=== PATIENT | male | born 1970 | race Two or more races ===

== ENCOUNTER 2022-02-13 01:06 | Emergency (ER) | payer OTHER ==
[~2022-02-13] VITALS: Ht 167.6 cm; Wt 52.2 kg
[2022-02-13 01:40] VITALS: BP 156/78
[2022-02-13] MEDS ORDERED: ALBUTEROL FS 2.5 MG/0.5 ML VIAL.NEB ONE (02:42)
[2022-02-13] MEDS ORDERED: IBUPROFEN 600 MG TABLET ONE (02:49)
[2022-02-13] MEDS ORDERED: IBUPROFEN 600 MG TABLET PO ONE (03:00)
[2022-02-13] MEDS ORDERED: ALBUTEROL FS 2.5 MG/0.5 ML VIAL.NEB NEB ONE (03:00)
--- NOTE | 2022-02-13 04:21 | NUR ---
Patient discharged to home in stable condition. Written and verbal after care instructions given. Patient verbalizes understanding of instruction.
== END 2022-02-13 04:20 | disposition home or self-care (01) ==
LOC: ER 01:07 → EDBD 01:07 → ER 04:20
DX: J18.9 Pneumonia, unspecified organism (principal); E11.22 Type 2 diabetes mellitus with diabetic chronic kidney disease; I12.0 Hypertensive chronic kidney disease with stage 5 chronic kidney disease or end stage renal disease; N18.6 End stage renal disease; Z99.2 Dependence on renal dialysis
CPT/HCPCS: 71045-TC

== ENCOUNTER 2022-07-08 14:21 | Inpatient (IN) | payer OTHER ==
[~2022-07-08] VITALS: Ht 162.6 cm; Wt 54.4 kg
--- NOTE | 2022-07-08 14:45 | NUR ---
Patient AOx4 able to express his concerns. Patient states he was feeling anxious earlier and that is the reason why he is here. Discussed plan of care, patient vrbalized agreement. All safety precautions taken.
--- NOTE | 2022-07-08 14:52 | NUR ---
Phelbotomist collecting blood sample.
--- NOTE | 2022-07-08 14:54 | NUR ---
RT at bedside collecting blood sample
[2022-07-08] MEDS ORDERED: ASCO-352 PO (15:29)
[2022-07-08] MEDS ORDERED: LISI10TA29 PO (15:29)
[2022-07-08] MEDS ORDERED: ACET-2605 PO ×2 (15:29)
[2022-07-08] MEDS ORDERED: NUT.237L67 PO (15:29)
[2022-07-08] MEDS ORDERED: PARO-64 PO (15:29)
[2022-07-08] MEDS ORDERED: CRAN425C6 PO (15:29)
[2022-07-08] MEDS ORDERED: CARV6.252 PO (15:29)
[2022-07-08] MEDS ORDERED: ACET-868 PO (15:29)
[2022-07-08] MEDS ORDERED: MAGN400O6 PO (15:29)
[2022-07-08] MEDS ORDERED: DONE5TAB34 PO (15:29)
[2022-07-08] MEDS ORDERED: FERR325T23 PO (15:29)
[2022-07-08] MEDS ORDERED: ASPI-1169 PO (15:29)
[2022-07-08] MEDS ORDERED: GABA-532 PO (15:29)
[2022-07-08] MEDS ORDERED: ATOR10TA PO (15:29)
[2022-07-08] MEDS ORDERED: ONDA-97 PO (15:29)
[2022-07-08] MEDS ORDERED: DOCU-141 PO (15:29)
[2022-07-08] MEDS ORDERED: CARB15DR12 EACH EAR (15:29)
[2022-07-08] MEDS ORDERED: INSU100V7 SQ (15:29)
[2022-07-08] MEDS ORDERED: NITR0.4T48 SL (15:29)
[2022-07-08] MEDS ORDERED: INSU100V39 SQ (15:29)
[2022-07-08] MEDS ORDERED: FAMO20TA8 PO (15:29)
[2022-07-08] MEDS ORDERED: FOLI0.8T2 PO (15:29)
[2022-07-08] MEDS ORDERED: CALC667C6 PO (15:29)
[2022-07-08] MEDS ORDERED: NIFE-34 PO (15:29)
[2022-07-08 15:31] LABS: ABG BASE EXCESS 5.7 mmol/L; ABG PCO2 45.8 mmHg (35.0-45.0); ABG PH 7.443 (7.350-7.450); ABG PO2 61.6 mmHg (75.0-100.0); COHb 0.5 % (0.5-1.5); MetHb 0.3 % (0.0-1.5); O2Hb 90.8 % (94.0-97.0); SITE, ABG Right Brachial; VENT MODE, BG Simple Mask 8lL
[2022-07-08 15:32] LABS: BASOPHILS # (AUTO) 0.1 K/uL (0.0-0.2); BASOPHILS % (AUTO) 1.2 % (0.0-2.0); EOSINOPHILS % (AUTO) 2.1 % (0.0-6.0); HEMATOCRIT 37 % (39-51); HEMOGLOBIN 12.4 g/dL (13.5-17.5); LYMPHOCYTES # (AUTO) 1.2 K/uL (0.8-4.8); LYMPHOCYTES % (AUTO) 16.9 % (20.0-44.0); MEAN CORPUSCULAR HGB CONC 34 g/dl (31.0-36.0); MEAN CORPUSCULAR VOLUME 95 fL (80-96); MONOCYTES % (AUTO) 13.3 % (2.0-12.0); NEUTROPHILS # (AUTO) 4.8 K/uL (1.8-8.9); NEUTROPHILS % (AUTO) 66.5 % (43.0-81.0); PLATELET COUNT (AUTO) 485 K/uL (150-450); RED BLOOD CELL COUNT(AUTO) 3.88 MIL/uL (4.5-6.0); WHITE BLOOD COUNT (AUTO) 7.3 K/uL (4.3-11.0)
[2022-07-08] MEDS ORDERED: VANCOMYCIN 1 GM in IV D5W 250 ML IV ONE (16:00)
[2022-07-08] MEDS ORDERED: CEFEPIME 1 GM in IV D5W 50 ML IV ONE (16:00)
[2022-07-08] MEDS ORDERED: CEFEPIME 1 GM VIAL ONE (16:01)
--- NOTE | 2022-07-08 16:03 | NUR ---
Called pharmacy, ordered prescribed medications.
[2022-07-08 16:24] LABS: ALANINE AMINOTRANSFERASE 22 U/L (12-78); ALBUMIN 3.6 g/dL (3.4-5.0); ALKALINE PHOSPHATASE 99 U/L (46-116); ASPARTATE AMINOTRANSFERASE 24 U/L (15-37); BILIRUBIN,DIRECT 0.1 mg/dL (0.0-0.2); BILIRUBIN,TOTAL 0.5 mg/dL (0.2-1.0); CALCIUM, SERUM 9.6 mg/dL (8.5-10.1); CARBON DIOXIDE 27 mmol/L (21-32); CHLORIDE 89 mmol/L (98-107); CREATININE 4.7 mg/dL (0.6-1.3); GLUCOSE 78 mg/dL (74-106); POTASSIUM 4.4 mmol/L (3.5-5.1); SODIUM SERUM 129 mmol/L (136-145); TOTAL PROTEIN, SERUM 7.9 g/dL (6.4-8.2); UREA NITROGEN, BLOOD 29 mg/dL (7-18)
--- NOTE | 2022-07-08 18:40 | NUR ---
Patient in bed, states he has no concerns. Aware of plan to move up as an inpatient, verbalized agreement.
--- NOTE | 2022-07-08 18:56 | NUR ---
REPORT GIVEN TO KODAK NIETO
--- NOTE | 2022-07-08 19:09 | NUR ---
CALLED [facility] PAGED PICKING BELT OPERATOR MATT DIRECTOR MORTGAGE FOR ADMISSION
--- NOTE | 2022-07-08 19:58 | NUR ---
PT TRANSFERRED TO 308-1 VIA ACLS PROTOCOL. TIM NIETO AT [facility]
--- NOTE | 2022-07-08 20:08 | NUR ---
RN NOTE; RECEIVED PT FROM ER IN RM 308-1,WITH FROY,AWAKED AOX4 LAO SPEAKING, ABLE TO MAKE NEEDS KNOWN,ON 4L O2 VIA NC LILA WELL SATING 97.4%,NO SIGN SOB/DISTRESS NOTED,IV ACCESS ON R HAND 20G INTACT AND PATENT,PT WAS ORIENT THE RM IN VERBALLY RESPONSIVE,PT ON GOING DIALYSIS LILA WELL,SAFETY MEASURE IN PLACE,CALL LIGHT WITHIN REACH,WILL CONTINUE TO MONITOR.
[2022-07-08] MEDS ORDERED: MAGNESIUM HYDROXIDE 30 ML UDC PO PRN (22:30)
[2022-07-08] MEDS ORDERED: DEXTROSE 50%-WATER 50 ML DISP.SYRIN IV PRN (22:30)
[2022-07-08] MEDS: FERROUS SULFATE (325 MG) 325 MG/TAB TABLET PO SCH (22:50)
[2022-07-08] MEDS: DOCUSATE SODIUM 100 MG CAPSULE PO SCH (22:50)
[2022-07-08] MEDS: GABAPENTIN 100 MG CAPSULE PO SCH (22:51)
[2022-07-08] MEDS: CARVEDILOL 6.25 MG TABLET PO SCH (22:51)
[2022-07-08] MEDS: DONEPEZIL 5 MG TABLET PO SCH (22:52)
[2022-07-08] MEDS: ATORVASTATIN 10 MG TABLET PO SCH (22:52)
[2022-07-08] MEDS: NIFEDIPINE XL 60 MG TAB.ER.24 PO SCH (22:52)
[2022-07-08] MEDS: CALCIUM ACETATE 667 MG CAP/TAB PO SCH (22:52)
[2022-07-08] MEDS: BLOOD SUGAR DIAGNOSTIC 1 EACH STRIP IN SCH (22:59)
[2022-07-08 23:00] VITALS: BP 155/86
[2022-07-08] MEDS: INSULIN GLARGINE, 100 UNIT/ML CARTRIDGE SQ SCH (23:11)
[2022-07-09] MEDS ORDERED: CARBAMIDE PEROXIDE OTIC 15 ML BOTTLE ONE (00:33)
[2022-07-09] MEDS: CARBAMIDE PEROXIDE OTIC 15 ML BOTTLE EACH EAR SCH ×3 (00:47→18:13)
[2022-07-09 04:00] VITALS: BP 134/65
[2022-07-09] MEDS ORDERED: CEFEPIME 1 GM in IV D5W 50 ML IV ONE (04:00)
[2022-07-09] MEDS ORDERED: CEFEPIME 1 GM VIAL ONE (05:21)
[2022-07-09 05:44] LABS: BASOPHILS # (AUTO) 0.1 K/uL (0.0-0.2); BASOPHILS % (AUTO) 1.6 % (0.0-2.0); EOSINOPHILS % (AUTO) 4.3 % (0.0-6.0); HEMATOCRIT 33 % (39-51); HEMOGLOBIN 10.8 g/dL (13.5-17.5); LYMPHOCYTES # (AUTO) 1.5 K/uL (0.8-4.8); LYMPHOCYTES % (AUTO) 21.6 % (20.0-44.0); MEAN CORPUSCULAR HGB CONC 33 g/dl (31.0-36.0); MEAN CORPUSCULAR VOLUME 96 fL (80-96); MONOCYTES # (AUTO) 0.9 K/uL (0.1-1.30); MONOCYTES % (AUTO) 13.2 % (2.0-12.0); NEUTROPHILS % (AUTO) 59.3 % (43.0-81.0); PLATELET COUNT (AUTO) 421 K/uL (150-450); RED BLOOD CELL COUNT(AUTO) 3.39 MIL/uL (4.5-6.0); WHITE BLOOD COUNT (AUTO) 6.8 K/uL (4.3-11.0)
[2022-07-09 06:19] LABS: CALCIUM, SERUM 8.9 mg/dL (8.5-10.1); CREATININE 3.9 mg/dL (0.6-1.3); PHOSPHORUS 3.9 mg/dL (2.5-4.9); POTASSIUM 3.7 mmol/L (3.5-5.1)
[2022-07-09] MEDS: BLOOD SUGAR DIAGNOSTIC 1 EACH STRIP IN SCH ×4 (06:19→22:09)
--- NOTE | 2022-07-09 06:27 | NUR ---
RN CLOSING NOTE; PATIENT IN BED AWAKED AOX4 BHUTANESE SPEAKING WITH LITTLE TURKISH,ABLE TO MAKE NEEDS KNOWN,ON 4L O2 VIA NC LILA WELL SATING 98%,NO SIGN SOB/DISTRESS NOTED,NO COMPLAIN OF PAIN/DISCOMFORT DURING SHIFT,DUE MEDS GIVEN ORDER,ALL NEEDS ATTENDED,IV ACCESS ON R HAND 20G SL,HD CATH KINGS [MWF] INTACT AND PATENT,SAFETY MEASURE IN PLACE,CALL LIGHT WITHIN REACH,WILL ENDORSED TO NEXT SHIFT
[2022-07-09] MEDS ORDERED: VANCOMYCIN 500 MG in IV D5W 100 ML IV PRN (06:30)
[2022-07-09 07:00] VITALS: BP 132/70
[2022-07-09 07:35] LABS: MAGNESIUM 2.3 mg/dL (1.8-2.4)
--- NOTE | 2022-07-09 07:51 | NUR ---
CHIEF WRITER Open Notes Received patient in bed. A/O x4. Slovenian speaking. IV @ left hand intact, patent, no s/s of dislocation. On O2 4L. No SOB/distress/pain noted. Keep the bed in lowest position. Offered assistance. Keep patient dry, clean, comfortable. Continue to monitor patient
[2022-07-09] MEDS: LISINOPRIL (10MG) 10 MG TABLET PO SCH (08:53)
[2022-07-09] MEDS: DOCUSATE SODIUM 100 MG CAPSULE PO SCH ×2 (08:53→21:13)
[2022-07-09] MEDS: CALCIUM ACETATE 667 MG CAP/TAB PO SCH ×3 (08:54→17:42)
[2022-07-09] MEDS: HEPARIN SODIUM, PORCINE 5000 UNITS/1 ML VIAL SQ SCH ×2 (08:57→21:14)
[2022-07-09] MEDS: GABAPENTIN 100 MG CAPSULE PO SCH ×3 (08:57→17:41)
[2022-07-09] MEDS: FAMOTIDINE (20 MG) 20 MG TABLET PO SCH (08:58)
[2022-07-09] MEDS: ASPIRIN 81 MG TAB.CHEW PO SCH (08:58)
[2022-07-09] MEDS: VIT B CMPLX 3/FA/VIT C/BIOTIN 1 TAB TABLET PO SCH (08:58)
[2022-07-09] MEDS: PAROXETINE HCL 20 MG TABLET PO SCH (08:58)
[2022-07-09] MEDS: FERROUS SULFATE (325 MG) 325 MG/TAB TABLET PO SCH ×2 (08:59→17:42)
[2022-07-09] MEDS: ASCORBIC ACID 500 MG TABLET PO SCH (08:59)
[2022-07-09] MEDS: CARVEDILOL 6.25 MG TABLET PO SCH ×2 (09:00→17:42)
[2022-07-09] MEDS: NIFEDIPINE XL 60 MG TAB.ER.24 PO SCH ×2 (09:00→21:13)
[2022-07-09] MEDS: NEPRO VAN 237 ML CAN PO SCH ×2 (09:04→17:42)
[2022-07-09] MEDS: ACETAMINOPHEN 325 MG TABLET PO PRN (12:34)
[2022-07-09] MEDS: INSULIN REGULAR, HUMAN 100 UNIT/ML 3 ML VIAL SQ PRN ×2 (12:43→22:08)
[2022-07-09 16:00] VITALS: BP 135/76
--- NOTE | 2022-07-09 18:49 | NUR ---
MOLD FILLING OPERATOR Closing Note Patient dry, clean, comfortable in bed, A/O x4, speak [place] Citizen, able to make needs known, on 4L O2 via NC, sat 98%, no s/s of SOB/distress/pain/discomfort noted. Offered laundry assistant. IV access on R hand 20G, intact, patent. Safety measure in place, call light at reach. Next shift will continue to monitor patient.
--- NOTE | 2022-07-09 19:31 | NUR ---
RN OPENING NOTE; RECEIVED PATIENT IN BED AWAKED AOX4 SOUTH AFRICAN SPEAKING WITH LITTLE DIVEHI,ABLE TO MAKE NEEDS KNOWN,ON 4L O2 VIA NC LILA WELL SATING 96%,NO SIGN SOB/DISTRESS NOTED,NO COMPLAIN OF PAIN/DISCOMFORT AT THIS TIME,IV ACCESS ON R HAND 20G SL,HD CATH KINGS [MWF] INTACT AND PATENT,SAFETY MEASURE IN PLACE,CALL LIGHT WITHIN REACH,WILL CONTINUE TO MONITOR.
[2022-07-09 20:00] VITALS: BP 165/95
[2022-07-09] MEDS: DONEPEZIL 5 MG TABLET PO SCH (21:13)
[2022-07-09] MEDS: ATORVASTATIN 10 MG TABLET PO SCH (21:13)
[2022-07-09] MEDS: INSULIN GLARGINE, 100 UNIT/ML CARTRIDGE SQ SCH (22:09)
[2022-07-09] MEDS: ONDANSETRON HCL/PF 4 MG/2 ML VIAL IVP PRN (22:26)
[2022-07-09] MEDS ORDERED: CEFEPIME 1 GM in IV D5W 50 ML IV SCH (23:00)
[2022-07-10] VITALS: BP 147/76
[2022-07-10 04:58] VITALS: BP 134/77
--- NOTE | 2022-07-10 06:13 | NUR ---
RN CLOSING NOTE; PATIENT IN BED AWAKED AOX4 DOMINICAN SPEAKING WITH LITTLE DANISH,ABLE TO MAKE NEEDS KNOWN,ON 4L O2 VIA NC LILA WELL SATING 97%,NO SIGN SOB/DISTRESS NOTED,NO COMPLAIN OF PAIN/DISCOMFORT DURING SHIFT,DUE MEDS GIVEN ORDER,ALL NEEDS ATTENDED,IV ACCESS ON R HAND 20G SL,HD CATH KINGS [MWF] INTACT AND PATENT,SAFETY MEASURE IN PLACE,CALL LIGHT WITHIN REACH,WILL ENDORSED TO NEXT SHIFT
[2022-07-10] MEDS: BLOOD SUGAR DIAGNOSTIC 1 EACH STRIP IN SCH ×4 (06:46→22:12)
--- NOTE | 2022-07-10 07:49 | NUR ---
BOTTOM CEMENTER Open Note Received patient in bed asleep. A/O x4. Northern Irish speaking. IV @ left hand intact, patent, no s/s of dislocation. On O2 4L. No SOB/distress/pain noted. Keep the bed in lowest position. Offered assistance. Keep patient dry, clean, comfortable. Continue to monitor patient
[2022-07-10 08:00] VITALS: BP 139/75
[2022-07-10] MEDS: GABAPENTIN 100 MG CAPSULE PO SCH ×3 (08:40→17:34)
[2022-07-10] MEDS: ASCORBIC ACID 500 MG TABLET PO SCH (08:45)
[2022-07-10] MEDS: CARBAMIDE PEROXIDE OTIC 15 ML BOTTLE EACH EAR SCH ×2 (08:45→17:33)
[2022-07-10] MEDS: HEPARIN SODIUM, PORCINE 5000 UNITS/1 ML VIAL SQ SCH ×2 (08:45→21:10)
[2022-07-10] MEDS: VIT B CMPLX 3/FA/VIT C/BIOTIN 1 TAB TABLET PO SCH (08:45)
[2022-07-10] MEDS: LISINOPRIL (10MG) 10 MG TABLET PO SCH (08:46)
[2022-07-10 08:47] LABS: BASOPHILS # (AUTO) 0.1 K/uL (0.0-0.2); BASOPHILS % (AUTO) 1.1 % (0.0-2.0); EOSINOPHILS % (AUTO) 3.8 % (0.0-6.0); HEMATOCRIT 37 % (39-51); HEMOGLOBIN 11.8 g/dL (13.5-17.5); LYMPHOCYTES # (AUTO) 1.2 K/uL (0.8-4.8); LYMPHOCYTES % (AUTO) 17.6 % (20.0-44.0); MEAN CORPUSCULAR HGB CONC 32 g/dl (31.0-36.0); MEAN CORPUSCULAR VOLUME 97 fL (80-96); MONOCYTES # (AUTO) 0.9 K/uL (0.1-1.30); MONOCYTES % (AUTO) 12.7 % (2.0-12.0); NEUTROPHILS # (AUTO) 4.6 K/uL (1.8-8.9); NEUTROPHILS % (AUTO) 64.8 % (43.0-81.0); PLATELET COUNT (AUTO) 476 K/uL (150-450); RED BLOOD CELL COUNT(AUTO) 3.78 MIL/uL (4.5-6.0); WHITE BLOOD COUNT (AUTO) 7.1 K/uL (4.3-11.0)
[2022-07-10] MEDS: NIFEDIPINE XL 60 MG TAB.ER.24 PO SCH ×2 (08:47→21:09)
[2022-07-10] MEDS: PAROXETINE HCL 20 MG TABLET PO SCH (08:47)
[2022-07-10] MEDS: FERROUS SULFATE (325 MG) 325 MG/TAB TABLET PO SCH ×2 (08:48→17:35)
[2022-07-10] MEDS: ASPIRIN 81 MG TAB.CHEW PO SCH (08:48)
[2022-07-10] MEDS: FAMOTIDINE (20 MG) 20 MG TABLET PO SCH (08:48)
[2022-07-10] MEDS: DOCUSATE SODIUM 100 MG CAPSULE PO SCH ×2 (08:48→21:09)
[2022-07-10] MEDS: CALCIUM ACETATE 667 MG CAP/TAB PO SCH ×3 (08:48→17:35)
[2022-07-10] MEDS: NEPRO VAN 237 ML CAN PO SCH ×2 (08:50→17:36)
[2022-07-10] MEDS: CARVEDILOL 6.25 MG TABLET PO SCH ×2 (08:50→17:35)
[2022-07-10 09:09] LABS: CALCIUM, SERUM 9.3 mg/dL (8.5-10.1); CREATININE 3.8 mg/dL (0.6-1.3); MAGNESIUM 2.4 mg/dL (1.8-2.4); PHOSPHORUS 3.2 mg/dL (2.5-4.9); POTASSIUM 3.9 mmol/L (3.5-5.1)
[2022-07-10 12:00] VITALS: BP 133/76
[2022-07-10] MEDS: ACETAMINOPHEN 325 MG TABLET PO PRN (12:00)
--- NOTE | 2022-07-10 14:37 | NUR ---
[employer] SCOUT note Performing of Skip Item Ondansetron HCl/PF 4mg/2ml 2Ml Vial at [facility] wasn't recorded. Performed Return Ondansetron HCl/PF 4mg/2ml 2Ml Vial at [facility] with no vial.
[2022-07-10 16:00] VITALS: BP 143/79
--- NOTE | 2022-07-10 18:48 | NUR ---
DIRECTOR OF STUDENT SERVICES Closing Note Patient in bed, A/O x4, Albanian speaking, able to make needs known. On O2 4L via NC, no s/s of SOB/distress/pain/discomfort. IV access on R hand #20G, intact, patent, no s/s of infection/infiltration. Satety measure in place. Call light at reach. Will endorse to next shift to continue monitor patient.
--- NOTE | 2022-07-10 19:33 | NUR ---
RN OPENING NOTE; RECEIVED PATIENT IN BED AWAKED AOX4 MALAYSIAN SPEAKING WITH LITTLE INDONESIAN,ABLE TO MAKE NEEDS KNOWN,ON 4L O2 VIA NC LILA WELL SATING 96%,NO SIGN SOB/DISTRESS NOTED,NO COMPLAIN OF PAIN/DISCOMFORT AT THIS TIME,IV ACCESS ON R HAND 20G SL,HD CATH KINGS [MWF] INTACT AND PATENT,SAFETY MEASURE IN PLACE,CALL LIGHT WITHIN REACH,WILL CONTINUE TO MONITOR.
[2022-07-10] MEDS ORDERED: GENTAMICIN 100 MG in IV D5W 100 ML IV ONE (21:00)
[2022-07-10] MEDS: ATORVASTATIN 10 MG TABLET PO SCH (21:08)
[2022-07-10] MEDS: DONEPEZIL 5 MG TABLET PO SCH (21:09)
[2022-07-10 21:27] VITALS: BP 139/65
[2022-07-10] MEDS: INSULIN REGULAR, HUMAN 100 UNIT/ML 3 ML VIAL SQ PRN (22:10)
[2022-07-10] MEDS: INSULIN GLARGINE, 100 UNIT/ML CARTRIDGE SQ SCH (22:11)
[2022-07-10] MEDS ORDERED: CEFEPIME 2 GM in IV D5W 100 ML IV SCH (23:00)
[2022-07-11] VITALS (7 sets, daily range): BP systolic 113–153; BP diastolic 61–92
[2022-07-11] MEDS ORDERED: GENTAMICIN 80 MG in IV D5W 50 ML IV PRN (06:00)
[2022-07-11 06:22] LABS: CALCIUM, SERUM 9.2 mg/dL (8.5-10.1); CREATININE 3.4 mg/dL (0.6-1.3); MAGNESIUM 2.4 mg/dL (1.8-2.4); PHOSPHORUS 3.1 mg/dL (2.5-4.9); POTASSIUM 4.4 mmol/L (3.5-5.1)
--- NOTE | 2022-07-11 06:26 | NUR ---
RN CLOSING NOTE; PATIENT IN BED AWAKED AOX4 GAMBIAN SPEAKING WITH LITTLE DIVEHI,ABLE TO MAKE NEEDS KNOWN,ON 4L O2 VIA NC LILA WELL SATING 99%,NO SIGN SOB/DISTRESS NOTED,NO COMPLAIN OF PAIN/DISCOMFORT DURING SHIFT,DUE MEDS GIVEN ORDER,ALL NEEDS ATTENDED,IV ACCESS ON R HAND 20G SL,HD CATH KINGS [MWF] INTACT AND PATENT,SAFETY MEASURE IN PLACE,CALL LIGHT WITHIN REACH,WILL ENDORSED TO NEXT SHIFT
[2022-07-11] MEDS: BLOOD SUGAR DIAGNOSTIC 1 EACH STRIP IN SCH ×4 (06:39→22:02)
[2022-07-11 07:03] LABS: BASOPHILS # (AUTO) 0.1 K/uL (0.0-0.2); BASOPHILS % (AUTO) 1.2 % (0.0-2.0); HEMATOCRIT 33 % (39-51); HEMOGLOBIN 10.7 g/dL (13.5-17.5); LYMPHOCYTES # (AUTO) 1.3 K/uL (0.8-4.8); MEAN CORPUSCULAR HGB CONC 33 g/dl (31.0-36.0); MEAN CORPUSCULAR VOLUME 98 fL (80-96); MONOCYTES # (AUTO) 0.9 K/uL (0.1-1.30); NEUTROPHILS # (AUTO) 4.4 K/uL (1.8-8.9); NEUTROPHILS % (AUTO) 62.8 % (43.0-81.0); PLATELET COUNT (AUTO) 400 K/uL (150-450); RED BLOOD CELL COUNT(AUTO) 3.35 MIL/uL (4.5-6.0); WHITE BLOOD COUNT (AUTO) 7.1 K/uL (4.3-11.0)
--- NOTE | 2022-07-11 08:35 | NUR ---
DIRECTOR BIOMEDICAL ENGINEERING Opening Note Received patient in bed, awaked. A/O X4. Swedish speaking. Able to make needs known. On O2 4L via NC. O2 sat 99%. No s/s of SOB/distress/pain/discomfort noted. IV access #20G at Right hand inplace, no s/s of infiltration/infection. Safety precaution in place. Call light at reach. Will continue to monitor patient.
[2022-07-11] MEDS: CARBAMIDE PEROXIDE OTIC 15 ML BOTTLE EACH EAR SCH ×2 (09:05→17:59)
[2022-07-11] MEDS: CALCIUM ACETATE 667 MG CAP/TAB PO SCH ×3 (09:05→18:02)
[2022-07-11] MEDS: VIT B CMPLX 3/FA/VIT C/BIOTIN 1 TAB TABLET PO SCH (09:05)
[2022-07-11] MEDS: FERROUS SULFATE (325 MG) 325 MG/TAB TABLET PO SCH ×2 (09:06→17:59)
[2022-07-11] MEDS: GABAPENTIN 100 MG CAPSULE PO SCH ×3 (09:06→18:00)
[2022-07-11] MEDS: DOCUSATE SODIUM 100 MG CAPSULE PO SCH ×2 (09:06→21:29)
[2022-07-11] MEDS: ASCORBIC ACID 500 MG TABLET PO SCH (09:07)
[2022-07-11] MEDS: NIFEDIPINE XL 60 MG TAB.ER.24 PO SCH ×2 (09:07→21:29)
[2022-07-11] MEDS: LISINOPRIL (10MG) 10 MG TABLET PO SCH (09:09)
[2022-07-11] MEDS: HEPARIN SODIUM, PORCINE 5000 UNITS/1 ML VIAL SQ SCH ×2 (09:09→22:42)
[2022-07-11] MEDS: ASPIRIN 81 MG TAB.CHEW PO SCH (09:10)
[2022-07-11] MEDS: PAROXETINE HCL 20 MG TABLET PO SCH (09:10)
[2022-07-11] MEDS: CARVEDILOL 6.25 MG TABLET PO SCH ×2 (09:10→17:00)
[2022-07-11] MEDS: FAMOTIDINE (20 MG) 20 MG TABLET PO SCH (09:25)
[2022-07-11] MEDS: NEPRO VAN 237 ML CAN PO SCH ×2 (09:25→18:03)
[2022-07-11] MEDS: INSULIN REGULAR, HUMAN 100 UNIT/ML 3 ML VIAL SQ PRN ×3 (14:57→22:23)
--- NOTE | 2022-07-11 19:31 | NUR ---
SCIENCE TUTOR Closing Note Patient in bed, A/O x4, Hong Konger speaking, able to make needs known. On O2 4L via NC, no s/s of SOB/distress/pain/discomfort. IV access on R hand #20G, intact, patent, no s/s of infection/infiltration. Satety measure in place. Call light at reach. Will endorse to next shift to continue with the patient's care plan.
--- NOTE | 2022-07-11 19:40 | NUR ---
ACQUISITION SPECIALIST OPENING NOTES RECEIVED PATIENT IN BED SLEEPING. EASILY AWAKEN BY VERBAL STIMULI. CHINESE SPEAKING. ON 4L OXYGEN VIA NASAL CANNULA, BREATHING EVEN AND UNLABORED, NO SOB OR DISTRESS NOTED AT THIS TIME. IV ACCESS ON THE RIGHT HAND #20G, SALINE LOCK AND KINGS HD CATH. ON EXTERNAL TUMBLING AND ROLLING SUPERVISOR WITH CURRENT READING OF SB @58. SAFETY MEASURES IN PLACE WITH BED IN LOWEST LOCKED POSITION. BED ALARM ON. SIDE RAILS UP X 2. CALL LIGHT WITHIN EASY REACH. WILL CONTINUE WITH THE PLAN OF CARE.
--- NOTE | 2022-07-11 22:00 | NUR ---
RN NOTES BS LEVEL IS 130. NO COVERAGE PER SLIDING SCALE. WILL CONTINUE TO MONITOR THE PATIENT.
[2022-07-11] MEDS: ATORVASTATIN 10 MG TABLET PO SCH (22:01)
[2022-07-11] MEDS: DONEPEZIL 5 MG TABLET PO SCH (22:01)
[2022-07-11] MEDS: INSULIN GLARGINE, 100 UNIT/ML CARTRIDGE SQ SCH (22:09)
--- NOTE | 2022-07-12 00:30 | NUR ---
RN NOTES BS LEVEL OF THE PATIENT IS 56. PATIENT IS DIAPHORETIC. GAVE ORANGE JUICE TO THE PATIENT. PATIENT WENT BACK TO SLEEP. WILL CONTINUE TO MONITOR THE PATIENT. Addendum: 07/12/22 at 0111 by DOUG RIVER RN 46 IS THE BS LEVEL
[2022-07-12 03:52] VITALS: BP 143/83
--- NOTE | 2022-07-12 06:10 | NUR ---
RN NOTES BS LEVEL OF PATIENT IS 39 AND GAVE BOLUS OF D5W. WILL ASSESS THE PATIENT AFTER AN HOUR.
[2022-07-12] MEDS: BLOOD SUGAR DIAGNOSTIC 1 EACH STRIP IN SCH ×4 (06:16→21:39)
[2022-07-12 07:00] VITALS: BP 139/81
--- NOTE | 2022-07-12 07:20 | NUR ---
RN NOTES PATIENT BS LEVEL IS 122 AFTER BOLUS OF D5W. WILL CONTINUE TO MONITOR THE PATIENT AND WILL ENDORSE T THE NEXT SHIFT.
--- NOTE | 2022-07-12 07:31 | NUR ---
METAPHYSICIST CLOSING NOTES PATIENT IN BED SLEEPING. EASILY AWAKEN BY VERBAL STIMULI. MAORI SPEAKING. ON 4L OXYGEN VIA NASAL CANNULA, BREATHING EVEN AND UNLABORED, NO SOB OR DISTRESS NOTED AT THIS TIME. IV ACCESS ON THE RIGHT HAND #20G, SALINE LOCK AND KINGS HD CATH. ON EXTERNAL CARDIOVASCULAR SURGEON WITH CURRENT READING OF SB @50'S. SAFETY MEASURES MAINTAINED MEMA THROUGHOUT THE SHIFT. ALL NEEDS ATTENDED. WILL ENDORSE TO THE NEXT SHIFT.
--- NOTE | 2022-07-12 07:35 | NUR ---
CROP FARM WORKERS CLOSING NOTES: RECEIVED PATIENT IN BED SLEEPING, EASILY ROUSED, A/O X3, KINYARWANDA SPEAKING, ABLE TO MAKE NEEDS KNOWN WITH TRANSLATION. DENIES PAIN AT THIS TIME. PT ON 4L OXYGEN VIA NASAL CANNULA, NO S/S OF SOB NOTED. IV ACCESS ON THE RIGHT HAND #20G, SALINE LOCK, PATENT, INTACT, KINGS HD CATH, NOTED, CDI. PALEOLOGY PROFESSOR READ SB, HR=54. ALL SAFETY MEASURES IN PLACE, CALL LIGHT AND TABLE WITHIN EASY REACH, WILL CONT WITH PLAN OF CARE DURING SHIFT.
[2022-07-12] MEDS: ASPIRIN 81 MG TAB.CHEW PO SCH (08:30)
[2022-07-12] MEDS: VIT B CMPLX 3/FA/VIT C/BIOTIN 1 TAB TABLET PO SCH (08:31)
[2022-07-12] MEDS: CALCIUM ACETATE 667 MG CAP/TAB PO SCH ×3 (08:31→17:28)
[2022-07-12] MEDS: GABAPENTIN 100 MG CAPSULE PO SCH ×3 (08:31→16:15)
[2022-07-12] MEDS: DOCUSATE SODIUM 100 MG CAPSULE PO SCH ×2 (08:31→21:17)
[2022-07-12] MEDS: FAMOTIDINE (20 MG) 20 MG TABLET PO SCH (08:31)
[2022-07-12] MEDS: PAROXETINE HCL 20 MG TABLET PO SCH (08:32)
[2022-07-12] MEDS: FERROUS SULFATE (325 MG) 325 MG/TAB TABLET PO SCH ×2 (08:32→16:15)
[2022-07-12] MEDS: ASCORBIC ACID 500 MG TABLET PO SCH (08:32)
[2022-07-12] MEDS: HEPARIN SODIUM, PORCINE 5000 UNITS/1 ML VIAL SQ SCH ×2 (08:34→21:18)
[2022-07-12] MEDS: CARBAMIDE PEROXIDE OTIC 15 ML BOTTLE EACH EAR SCH ×3 (08:52→16:15)
[2022-07-12] MEDS: CARVEDILOL 6.25 MG TABLET PO SCH ×2 (08:52→16:15)
[2022-07-12] MEDS: NIFEDIPINE XL 60 MG TAB.ER.24 PO SCH ×2 (08:53→21:22)
--- NOTE | 2022-07-12 08:53 | NUR ---
RN NOTES: BP MED HELD AM BP MEDS FOR SCHEDULED HD 07/12, BP= 139/81, HR= 54
[2022-07-12] MEDS: NEPRO VAN 237 ML CAN PO SCH ×2 (08:56→17:39)
[2022-07-12] MEDS: LISINOPRIL (10MG) 10 MG TABLET PO SCH (08:57)
--- NOTE | 2022-07-12 10:30 | NUR ---
RN NOTES: PT MOVED TO ROOM 312-2
--- NOTE | 2022-07-12 11:00 | NUR ---
RN NOTES- MISSING MED EARDROP NOT GIVEN, MISSING FROM CASSETTE AND PT'S BEDSIDE, CALLED PHARMACY FOR REPLACEMENT.
[2022-07-12] MEDS: INSULIN REGULAR, HUMAN 100 UNIT/ML 3 ML VIAL SQ PRN ×2 (11:06→21:39)
[2022-07-12 12:12] LABS: BASOPHILS # (AUTO) 0.2 K/uL (0.0-0.2); BASOPHILS % (AUTO) 3.3 % (0.0-2.0); EOSINOPHILS % (AUTO) 4.9 % (0.0-6.0); HEMATOCRIT 33 % (39-51); HEMOGLOBIN 10.9 g/dL (13.5-17.5); LYMPHOCYTES # (AUTO) 1.4 K/uL (0.8-4.8); MEAN CORPUSCULAR HGB CONC 33 g/dl (31.0-36.0); MEAN CORPUSCULAR VOLUME 96 fL (80-96); MONOCYTES # (AUTO) 0.6 K/uL (0.1-1.30); MONOCYTES % (AUTO) 9.6 % (2.0-12.0); NEUTROPHILS # (AUTO) 3.5 K/uL (1.8-8.9); NEUTROPHILS % (AUTO) 59.2 % (43.0-81.0); PLATELET COUNT (AUTO) 372 K/uL (150-450); RED BLOOD CELL COUNT(AUTO) 3.43 MIL/uL (4.5-6.0); WHITE BLOOD COUNT (AUTO) 5.9 K/uL (4.3-11.0)
[2022-07-12 12:13] VITALS: BP 139/58
[2022-07-12 12:28] LABS: CALCIUM, SERUM 9.1 mg/dL (8.5-10.1); MAGNESIUM 2.3 mg/dL (1.8-2.4); PHOSPHORUS 2.6 mg/dL (2.5-4.9); POTASSIUM 4.5 mmol/L (3.5-5.1)
--- NOTE | 2022-07-12 12:47 | NUR ---
RN NOTES: 1300 MEDS HELD, PT IS CURRENTLY ON HD
[2022-07-12 16:00] VITALS: BP 139/58
--- NOTE | 2022-07-12 19:15 | NUR ---
RN opening notes Received Pt from morning nurse. Pt is laying in bed comfortably. Pt is alert and orientedX3. Pt speaks Swiss and able to make needs known. On 4 L NC. No SOB. No S/S of distress noted. IV site at R hand # 20 is clean, intact and flushes well. KINGS HD cath is clean, intact and inplaced. Tele monitor showed SR hr at 73. Safety precautions is maintained. bed at low position, brakes locked, hob elevated, bed alarm is on, side rails upX3, urinal at the bedside and call light is within reach.
--- NOTE | 2022-07-12 19:52 | NUR ---
COMMISSIONER OF RELOCATION SERVICESMANAGER ORANGE NOTES: PATIENT IN BED SLEEPING, EASILY ROUSED, A/O X3, ARMENIAN SPEAKING, ABLE TO MAKE NEEDS KNOWN WITH TRANSLATION. DENIES PAIN AT THIS TIME. PT ON 4L OXYGEN VIA NASAL CANNULA, NO S/S OF SOB NOTED. IV ACCESS ON THE RIGHT HAND #20G, SALINE LOCK, PATENT, INTACT, KINGS HD CATH, NOTED, CDI. INVENTORY ASSOCIATE AND DRIVER READ SB, HR=55 S/P HD, TOTAL OUTPUT = 3.5L. ALL DUE MEDS GIVEN, KEPT PT CLEAN, DRY AND COMFORTABLE. ALL SAFETY MEASURES IN PLACE, CALL LIGHT AND TABLE WITHIN EASY REACH, ENDORSED TO PM SHIFT. Addendum: 07/12/22 at 1956 by VAIBHAV MORELOS RN COMMISSIONER OF RELOCATION SERVICES CLOSING NOTES
[2022-07-12 20:00] VITALS: BP 187/91
[2022-07-12] MEDS: ATORVASTATIN 10 MG TABLET PO SCH (21:17)
[2022-07-12] MEDS: DONEPEZIL 5 MG TABLET PO SCH (21:22)
--- NOTE | 2022-07-12 21:40 | NUR ---
RN notes Pt's blood sugar 135. Pt refuses coverage. Explained risks and benefits. Will continue to monitor.
[2022-07-12] MEDS: ONDANSETRON HCL/PF 4 MG/2 ML VIAL IVP PRN (21:48)
--- NOTE | 2022-07-12 21:48 | NUR ---
RN notes Pt is feeling nausea no emesis. pt is requesting med. administered zofran as ordered. safety precautions is maintained. will continue to monitor.
--- NOTE | 2022-07-12 21:56 | NUR ---
RN notes Pt is having insomnia and requesting a sleeping pill. Informed and notify Dr. Gonzalez. ordered ambien 5mg/po/hs/prn. Order carried out. Will continue to monitor.
[2022-07-12] MEDS: ZOLPIDEM TARTRATE 5 MG TABLET PO PRN (22:43)
--- NOTE | 2022-07-12 22:44 | NUR ---
RN notes Pt is having insomnia and requesting a sleeping pill. administered ambien as ordered for sleeping. safety precautions is maintained. will continue to monitor.
[2022-07-13] VITALS (7 sets, daily range): BP systolic 124–185; BP diastolic 63–104
--- NOTE | 2022-07-13 01:55 | NUR ---
RN notes Pt's BP 177/88. HR 69. Informed and notify Dr. Gonzalez. ordered clonidine 0.1mg/Q 8 hr/prn. order carried out.
[2022-07-13] MEDS: CLONIDINE HCL 0.1 MG TABLET PO PRN (02:18)
--- NOTE | 2022-07-13 02:18 | NUR ---
RN notes Pt's BP 177/88. administeerd clonidine/po/prn as ordered. will continue to monitor.
--- NOTE | 2022-07-13 04:00 | NUR ---
RN notes BP 131/63. Will continue to monitor.
--- NOTE | 2022-07-13 06:30 | NUR ---
RN closing notes Pt is resting in bed comfortably. Pt is alert and orientedX3. Pt speaks Citizen Of [place] and able to make needs known. On 4 L NC. No SOB. No S/S of distress noted. VS is stable. IV site at R hand # 20 is clean, intact and flushes well. KINGS HD cath is clean, intact and inplaced. Tele monitor showed S.stan hr at 59. Routine meds were given as ordered. Kept Pt clean, dry and comfortable. all needs met and attended. Safety precautions is maintained. bed at low position, brakes locked, hob elevated, bed alarm is on, side rails upX3, urinal at the bedside and call light is within reach. Will endorse to am nurse for MILLIE.
[2022-07-13 07:14] LABS: BASOPHILS # (AUTO) 0.1 K/uL (0.0-0.2); BASOPHILS % (AUTO) 1.7 % (0.0-2.0); EOSINOPHILS % (AUTO) 3.6 % (0.0-6.0); HEMATOCRIT 35 % (39-51); HEMOGLOBIN 11.2 g/dL (13.5-17.5); LYMPHOCYTES # (AUTO) 1.8 K/uL (0.8-4.8); LYMPHOCYTES % (AUTO) 27.7 % (20.0-44.0); MEAN CORPUSCULAR HGB CONC 32 g/dl (31.0-36.0); MEAN CORPUSCULAR VOLUME 98 fL (80-96); MONOCYTES # (AUTO) 0.8 K/uL (0.1-1.30); MONOCYTES % (AUTO) 12.1 % (2.0-12.0); NEUTROPHILS # (AUTO) 3.5 K/uL (1.8-8.9); NEUTROPHILS % (AUTO) 54.9 % (43.0-81.0); PLATELET COUNT (AUTO) 378 K/uL (150-450); RED BLOOD CELL COUNT(AUTO) 3.59 MIL/uL (4.5-6.0); WHITE BLOOD COUNT (AUTO) 6.3 K/uL (4.3-11.0)
[2022-07-13 07:27] LABS: CALCIUM, SERUM 9.4 mg/dL (8.5-10.1); CREATININE 3.8 mg/dL (0.6-1.3); MAGNESIUM 2.3 mg/dL (1.8-2.4); PHOSPHORUS 2.8 mg/dL (2.5-4.9); POTASSIUM 4.8 mmol/L (3.5-5.1)
--- NOTE | 2022-07-13 07:30 | NUR ---
MANNEQUIN MOUNTER OPENING NOTES RECEIVED PATIENT ON BED RESTING AND A/O X3. ON O2 AT 3LPM VIA NASAL CANNULA TOLERATING WELL. NO SOB NOTED. NOT IN DISTRESS. WITH NO COMPLAINTS OF PAIN AT THIS TIME. ON TELE MONITOR CURRENTLY READING SINUS RHYTHM AT 65BPM. WITH LEFT UPPER ARM HD CATHETER. WITH IV ACCESS AT THE LEFT HAND G20 SALINE LOCKED, PATENT AND INTACT. SAFETY MEASURES IN PLACED. CALL LIGHT WITHIN REACH. BED ON LOWEST LOCKED POSITION, SIDE RAILS UP X2. WILL CONTINUE TO MONITOR.
[2022-07-13] MEDS: BLOOD SUGAR DIAGNOSTIC 1 EACH STRIP IN SCH ×4 (07:34→21:38)
[2022-07-13] MEDS: INSULIN REGULAR, HUMAN 100 UNIT/ML 3 ML VIAL SQ PRN ×4 (07:35→21:38)
[2022-07-13] MEDS: ASCORBIC ACID 500 MG TABLET PO SCH (08:59)
[2022-07-13] MEDS: DOCUSATE SODIUM 100 MG CAPSULE PO SCH ×2 (08:59→21:17)
[2022-07-13] MEDS: CALCIUM ACETATE 667 MG CAP/TAB PO SCH ×3 (08:59→17:39)
[2022-07-13] MEDS: FAMOTIDINE (20 MG) 20 MG TABLET PO SCH (08:59)
[2022-07-13] MEDS: VIT B CMPLX 3/FA/VIT C/BIOTIN 1 TAB TABLET PO SCH (08:59)
[2022-07-13] MEDS: CARVEDILOL 6.25 MG TABLET PO SCH ×2 (08:59→17:00)
[2022-07-13] MEDS: PAROXETINE HCL 20 MG TABLET PO SCH (08:59)
[2022-07-13] MEDS: FERROUS SULFATE (325 MG) 325 MG/TAB TABLET PO SCH ×2 (08:59→17:39)
[2022-07-13] MEDS: ASPIRIN 81 MG TAB.CHEW PO SCH (09:00)
[2022-07-13] MEDS: NEPRO VAN 237 ML CAN PO SCH ×2 (09:00→17:41)
[2022-07-13] MEDS: NIFEDIPINE XL 60 MG TAB.ER.24 PO SCH ×2 (09:05→21:16)
[2022-07-13] MEDS: CARBAMIDE PEROXIDE OTIC 15 ML BOTTLE EACH EAR SCH ×2 (09:05→17:00)
[2022-07-13] MEDS: LISINOPRIL (10MG) 10 MG TABLET PO SCH (09:05)
[2022-07-13] MEDS: GABAPENTIN 100 MG CAPSULE PO SCH ×3 (09:06→17:39)
[2022-07-13] MEDS: HEPARIN SODIUM, PORCINE 5000 UNITS/1 ML VIAL SQ SCH ×2 (09:08→21:19)
[2022-07-13] MEDS: ONDANSETRON HCL/PF 4 MG/2 ML VIAL IVP PRN ×2 (11:45→23:45)
--- NOTE | 2022-07-13 19:20 | NUR ---
SHRINK PIT SUPERVISOR CLOSING NOTES PATIENT ON BED RESTING AND A/O X3. ON O2 AT 3LPM VIA NASAL CANNULA TOLERATING WELL. NO SOB NOTED. NOT IN DISTRESS. WITH NO COMPLAINTS OF PAIN AT THIS TIME. ON TELE MONITOR CURRENTLY READING SINUS RHYTHM AT 61BPM. WITH LEFT UPPER ARM HD CATHETER. WITH IV ACCESS AT THE LEFT HAND G20 SALINE LOCKED, PATENT AND INTACT. DUE MEDS GIVEN. SAFETY MEASURES IN PLACED. CALL LIGHT WITHIN REACH. BED ON LOWEST LOCKED POSITION, SIDE RAILS UP X2. WILL ENDORSE TO NEXT SHIFT MILLIE.
--- NOTE | 2022-07-13 19:21 | NUR ---
RN opening notes Received Pt from morning nurse. Pt is laying in bed comfortably. Pt is alert and orientedX3. Pt speaks Belizean and able to make needs known. On 4 L NC. No SOB. No S/S of distress noted. IV site at R hand # 20 is clean, intact and flushes well. KINGS HD cath is clean, intact and inplaced. Tele monitor showed SR hr at 72. Safety precautions is maintained. Bed at low position, brakes locked, hob elevated, bed alarm is on, side rails upX3, urinal at the bedside and call light is within reach. Will continue to monitor.
[2022-07-13] MEDS: DONEPEZIL 5 MG TABLET PO SCH (21:11)
[2022-07-13] MEDS: ATORVASTATIN 10 MG TABLET PO SCH (21:17)
[2022-07-13] MEDS: ZOLPIDEM TARTRATE 5 MG TABLET PO PRN (23:50)
--- NOTE | 2022-07-13 23:53 | NUR ---
RN notes Pt is having insomnia and requesting a sleeping pill. administered ambien/po/prn as ordered. safety precautions is maintained. will continue to monitor.
[2022-07-14 00:43] VITALS: BP 163/82
[2022-07-14] MEDS: CLONIDINE HCL 0.1 MG TABLET PO PRN (00:46)
--- NOTE | 2022-07-14 00:50 | NUR ---
RN notes Pt's BP 163/82. administered clonidine/1 tab/po/prn as ordered. Will continue to monitor.
--- NOTE | 2022-07-14 03:45 | NUR ---
RN notes BP 151/70 after bp meds/prn clonidine.
[2022-07-14 05:05] VITALS: BP 151/70
[2022-07-14] MEDS: INSULIN REGULAR, HUMAN 100 UNIT/ML 3 ML VIAL SQ PRN ×3 (06:32→21:42)
[2022-07-14] MEDS: BLOOD SUGAR DIAGNOSTIC 1 EACH STRIP IN SCH ×4 (06:32→21:42)
--- NOTE | 2022-07-14 06:42 | NUR ---
RN closing notes Pt is resting in bed comfortably. Pt is alert and orientedX3. Pt speaks Arabic and able to make needs known. On 4 L NC. No SOB. No S/S of distress noted. VS is stable. IV site at R hand # 20 is clean, intact and flushes well. KINGS HD cath is clean, intact and inplaced. Tele monitor showed SR hr at 65. Routine meds were given as ordered. Kept Pt clean, dry and comfortable. all needs met and attended. Safety precautions is maintained. bed at low position, brakes locked, hob elevated, bed alarm is on, side rails upX3, urinal at the bedside and call light is within reach. Will endorse to am nurse for MILLIE.
[2022-07-14 07:00] VITALS: BP 149/77
[2022-07-14 07:00] LABS: BASOPHILS # (AUTO) 0.1 K/uL (0.0-0.2); BASOPHILS % (AUTO) 1.4 % (0.0-2.0); HEMATOCRIT 32 % (39-51); HEMOGLOBIN 10.6 g/dL (13.5-17.5); LYMPHOCYTES # (AUTO) 1.9 K/uL (0.8-4.8); LYMPHOCYTES % (AUTO) 30.3 % (20.0-44.0); MEAN CORPUSCULAR HGB CONC 33 g/dl (31.0-36.0); MEAN CORPUSCULAR VOLUME 95 fL (80-96); MONOCYTES # (AUTO) 0.7 K/uL (0.1-1.30); MONOCYTES % (AUTO) 11.4 % (2.0-12.0); NEUTROPHILS # (AUTO) 3.2 K/uL (1.8-8.9); NEUTROPHILS % (AUTO) 51.9 % (43.0-81.0); PLATELET COUNT (AUTO) 310 K/uL (150-450); RED BLOOD CELL COUNT(AUTO) 3.41 MIL/uL (4.5-6.0); WHITE BLOOD COUNT (AUTO) 6.3 K/uL (4.3-11.0)
--- NOTE | 2022-07-14 07:15 | NUR ---
ms rn receive on bed awake,oriented x3,not in any form of distress, o2 4 liters, saturating good, patient is for another hd today, will held morning meds at this time, denies pian,no fever, no nausea, will monitor patient.
[2022-07-14 07:20] LABS: CALCIUM, SERUM 9.3 mg/dL (8.5-10.1); CREATININE 5.3 mg/dL (0.6-1.3); MAGNESIUM 2.6 mg/dL (1.8-2.4); PHOSPHORUS 2.8 mg/dL (2.5-4.9); POTASSIUM 5.4 mmol/L (3.5-5.1)
[2022-07-14] MEDS: CARBAMIDE PEROXIDE OTIC 15 ML BOTTLE EACH EAR SCH ×2 (09:00→17:00)
[2022-07-14] MEDS: ASCORBIC ACID 500 MG TABLET PO SCH (09:12)
[2022-07-14] MEDS: ASPIRIN 81 MG TAB.CHEW PO SCH (09:12)
[2022-07-14] MEDS: VIT B CMPLX 3/FA/VIT C/BIOTIN 1 TAB TABLET PO SCH (09:12)
[2022-07-14] MEDS: FERROUS SULFATE (325 MG) 325 MG/TAB TABLET PO SCH ×2 (09:13→18:32)
[2022-07-14] MEDS: PAROXETINE HCL 20 MG TABLET PO SCH (09:13)
[2022-07-14] MEDS: GABAPENTIN 100 MG CAPSULE PO SCH ×3 (09:13→18:31)
[2022-07-14] MEDS: CALCIUM ACETATE 667 MG CAP/TAB PO SCH ×3 (09:13→18:31)
[2022-07-14] MEDS: DOCUSATE SODIUM 100 MG CAPSULE PO SCH ×2 (09:13→21:00)
[2022-07-14] MEDS: FAMOTIDINE (20 MG) 20 MG TABLET PO SCH (09:16)
[2022-07-14] MEDS: HEPARIN SODIUM, PORCINE 5000 UNITS/1 ML VIAL SQ SCH (09:26)
[2022-07-14] MEDS: NEPRO VAN 237 ML CAN PO SCH ×2 (09:27→18:32)
--- NOTE | 2022-07-14 14:00 | NUR ---
ms rn hd done w/ 2.5 liters out,patient tolerated well, w/ still high b/p.
[2022-07-14] MEDS: NIFEDIPINE XL 60 MG TAB.ER.24 PO SCH ×2 (14:06→21:00)
[2022-07-14] MEDS: CARVEDILOL 6.25 MG TABLET PO SCH ×2 (14:07→18:31)
[2022-07-14] MEDS: LISINOPRIL (10MG) 10 MG TABLET PO SCH (14:07)
--- NOTE | 2022-07-14 16:00 | NUR ---
ms rn had an episode of hypoglycemia, d10 iv given for 24 level, rechecked bs 221,no distress noted. all need attended.
[2022-07-14] MEDS ORDERED: DEXTROSE 10% IN WATER 250 ML BAG IV ONE (17:30)
--- NOTE | 2022-07-14 19:15 | NUR ---
ms rn on bed, no distress noted.
--- NOTE | 2022-07-14 19:30 | NUR ---
FIRE EXTINGUISHER CHARGER OPENING NOTES RECEIVED PT AWAKE IN BED, A/O X3, BHUTANESE-SPEAKING, ABLE TO MAKE NEEDS KNOWN. ON O2 4L VIA NC, PT SPITTING/COUGHING IN VOMIT BAG BUT DENIES PAIN OR SOB. ON TELE MONITOR SR 70. IV ACCESS R HAND #20G SL, PATENT, INTACT, FLUSHING WELL. KINGS HD CATH INTACT. S/P HD WITH 2.5 L OUTPUT, S/P THORACENTESIS 1.5 L OUTPUT PER DAY SHIFT NURSE REPORT. HAD MULTIPLE EPISODES OF HYPOGLYCEMIA DURING THE DAY, NO S/S OF HYPOGLYCEMIA NOTED AT THIS TIME. SAFETY PRECAUTIONS IN PLACE: BED LOCKED AND IN LOWEST POSITION, SIDE RAILS UP X3, CALL LIGHT AND TRAY TABLE WITHIN REACH. WILL CONTINUE TO MONITOR AND ASSIST.
[2022-07-14 20:00] VITALS: BP 166/86
[2022-07-14] MEDS: ATORVASTATIN 10 MG TABLET PO SCH (21:42)
[2022-07-14] MEDS: DONEPEZIL 5 MG TABLET PO SCH (21:42)
--- NOTE | 2022-07-14 21:43 | NUR ---
RN NOTES PT REFUSING TO TAKE MEDS FOR THE NIGHT EXCEPT FOR BLOOD SUGAR CHECK. EXPLAINED NEED FOR THE MEDS, ESPECIALLY HIS BP BEING REALLY HIGH AT 166/86. EXPLAINED RISK/BENEFITS AND STILL REFUSES, JUST KEPT SAYING NO. WILL CONTINUE TO MONITOR.
[2022-07-15] VITALS: BP 144/69
[2022-07-15 04:00] VITALS: BP 145/77
[2022-07-15 06:43] LABS: BASOPHILS # (AUTO) 0.1 K/uL (0.0-0.2); BASOPHILS % (AUTO) 0.8 % (0.0-2.0); EOSINOPHILS % (AUTO) 3.7 % (0.0-6.0); HEMATOCRIT 33 % (39-51); HEMOGLOBIN 10.9 g/dL (13.5-17.5); LYMPHOCYTES # (AUTO) 1.5 K/uL (0.8-4.8); LYMPHOCYTES % (AUTO) 19.8 % (20.0-44.0); MEAN CORPUSCULAR HGB CONC 33 g/dl (31.0-36.0); MEAN CORPUSCULAR VOLUME 96 fL (80-96); MONOCYTES # (AUTO) 0.8 K/uL (0.1-1.30); MONOCYTES % (AUTO) 11.3 % (2.0-12.0); NEUTROPHILS # (AUTO) 4.8 K/uL (1.8-8.9); NEUTROPHILS % (AUTO) 64.4 % (43.0-81.0); PLATELET COUNT (AUTO) 262 K/uL (150-450); RED BLOOD CELL COUNT(AUTO) 3.44 MIL/uL (4.5-6.0); WHITE BLOOD COUNT (AUTO) 7.4 K/uL (4.3-11.0)
[2022-07-15] MEDS: BLOOD SUGAR DIAGNOSTIC 1 EACH STRIP IN SCH ×4 (06:44→21:50)
[2022-07-15] MEDS: INSULIN REGULAR, HUMAN 100 UNIT/ML 3 ML VIAL SQ PRN ×2 (06:44→17:52)
--- NOTE | 2022-07-15 06:45 | NUR ---
SPECIAL DIET COOK CLOSING NOTES PT SLEEPING IN BED, EASILY AROUSABLE. A/O X3, BURMESE-SPEAKING, ABLE TO MAKE NEEDS KNOWN. STABLE ON O2 4L VIA NC, PT SPITTING/COUGHING IN VOMIT BAG EARLY IN THE SHIFT BUT SUBSIDED THROUGHOUT THE NIGHT. DENIES PAIN OR SOB AT THIS TIME. ON TELE MONITOR SR WITH PVC'S, 72 HR. IV ACCESS R HAND #20G SL, PATENT, INTACT, FLUSHING WELL. KINGS HD CATH INTACT. S/P HD WITH 2.5 L OUTPUT, S/P THORACENTESIS 1.5 L OUTPUT. NO S/S OF HYPOGLYCEMIA NOTED THROUGHOUT SHIFT. NON-COMPLIANT WITH MEDS LAST NIGHT. ALL CARE PROVIDED. SAFETY PRECAUTIONS MAINTAINED: BED LOCKED AND IN LOWEST POSITION, SIDE RAILS UP X3, CALL LIGHT AND TRAY TABLE WITHIN REACH. WILL ENDORSE MILLIE TO DAY SHIFT NURSE.
[2022-07-15 07:08] LABS: CALCIUM, SERUM 9.3 mg/dL (8.5-10.1); CREATININE 4.8 mg/dL (0.6-1.3); MAGNESIUM 2.5 mg/dL (1.8-2.4); PHOSPHORUS 2.7 mg/dL (2.5-4.9); POTASSIUM 5.2 mmol/L (3.5-5.1)
--- NOTE | 2022-07-15 07:15 | NUR ---
MS RN RECEIVED ON BED, AWAKE,ALERT,ORIENTED X3,NOT IN ANY FORM OF DISTRESS, RESPIRATIONS EVEN AND UNLBORED,NO SOB NOTED, LUNGS ARE DIMINISHED, ABDOMEN SOFT,POSITIVE BOWEL SOUNDS, PATIENT FOR HD TODAY AND POSSIBLE THORACENTESIS AGAIN, WILL MONITOR PATIENT.
[2022-07-15] MEDS: FAMOTIDINE (20 MG) 20 MG TABLET PO SCH (07:57)
[2022-07-15] MEDS: CALCIUM ACETATE 667 MG CAP/TAB PO SCH ×3 (07:57→18:58)
[2022-07-15 08:00] VITALS: BP 121/70
[2022-07-15] MEDS: NEPRO VAN 237 ML CAN PO SCH ×2 (09:00→18:59)
[2022-07-15] MEDS: CARBAMIDE PEROXIDE OTIC 15 ML BOTTLE EACH EAR SCH ×2 (09:00→17:00)
[2022-07-15] MEDS: GABAPENTIN 100 MG CAPSULE PO SCH ×3 (09:17→18:58)
[2022-07-15] MEDS: ASCORBIC ACID 500 MG TABLET PO SCH (09:17)
[2022-07-15] MEDS: DOCUSATE SODIUM 100 MG CAPSULE PO SCH ×2 (09:17→21:13)
[2022-07-15] MEDS: PAROXETINE HCL 20 MG TABLET PO SCH (09:17)
[2022-07-15] MEDS: FERROUS SULFATE (325 MG) 325 MG/TAB TABLET PO SCH ×2 (09:17→18:58)
--- NOTE | 2022-07-15 09:25 | NUR ---
ms álvaro breakfast served,due meds given,tolerated well. b/p meds held at this time, possible hd today.
--- NOTE | 2022-07-15 09:50 | NUR ---
CALLED MD PÉREZ the transportation specialist IR doctor, regarding thoracentesis, he said is busy today , maybe tomorrow, informed ANTWON Duarte tomorrow
[2022-07-15 12:00] VITALS: BP 146/84
--- NOTE | 2022-07-15 13:00 | NUR ---
ms rn patient on hd at this time, bs - 161 - no coverage given, due to patient has low sugar yesterday. aware.
[2022-07-15] MEDS: VIT B CMPLX 3/FA/VIT C/BIOTIN 1 TAB TABLET PO SCH (15:54)
[2022-07-15] MEDS: NIFEDIPINE XL 60 MG TAB.ER.24 PO SCH ×2 (15:56→21:14)
[2022-07-15] MEDS: LISINOPRIL (10MG) 10 MG TABLET PO SCH (15:56)
[2022-07-15] MEDS: CARVEDILOL 6.25 MG TABLET PO SCH ×2 (15:57→18:59)
[2022-07-15 16:00] VITALS: BP 189/101
--- NOTE | 2022-07-15 19:15 | NUR ---
ms rn on bed, all needs attended.
--- NOTE | 2022-07-15 19:30 | NUR ---
RN MS OPENING NOTES RECEIVE PATIENT IN BED, AWAKE AND COHERENT. A/O X 4 TAJIK SPEAKING. ON MODERATE HIGH BACK REST POSITION. AMBULATORY WITH ASSISTANCE, WITH IV ACCESS AT RIGHT HAND #20G PATENT AND INTACT. WITH LEFT UPPER ARM HD CATHETER FUNCTIONING. ATTACHED TO TELE MONITORING DEVICE. SUGAR CHECK AT 136MG/DL. WITH EPISODE OF HYPOGLYCEMIA NO INSULIN GIVEN FOR NOW. STATUS POST HD 3 LITERS OUT. KEPT BED WARM AND COMFORTABLE. KEPT BED ON LOWER LOCKED POSITION, KEPT SIDE RAILS X 2 ALL THE TIME, KEPT CALL LIGHT WITHIN AT REACH. ALL NEEDS ATTENDED, WILL CONTINUE TO MONITOR.
[2022-07-15] MEDS: ATORVASTATIN 10 MG TABLET PO SCH (21:36)
[2022-07-15] MEDS: DONEPEZIL 5 MG TABLET PO SCH (21:36)
[2022-07-16 07:00] VITALS: BP 122/66
--- NOTE | 2022-07-16 07:00 | NUR ---
WARRANTY CLERK CLOSING NOTES PATIENT IS IN BED ASLEEP, ON MODERATE HIGH BACK REST POSITION.A/O X 4 SLOVAK SPEAKING.ON NASAL CANNULA AT 4LPM SATURATING WELL.NO COMPLAIN OF PAIN OR DISCOMFORT AT THIS TIME. WITH IV ACCESS AT RIGHT HAND #20G PATENT AND INTACT.NO SOB OR DISTRESS AT THIS TIME. NO S/S OF HYPOGLYCEMIA NOTED. ALL DUE MEDICATIONS GIVEN, ALL NEEDS ATTENDED. KEPT BED ON LOWER LOCKED POSITION, KEPT SIDE RAILS UP X 3 ALL THE TIME, CALL LIGHT WITHIN AT REACH. KEPT PATIENT WARM AND COMFORTABLE. WILL ENDORSED TO NEXT SHIFT FOR MILLIE.
--- NOTE | 2022-07-16 07:39 | NUR ---
COURT DEPUTY OPENING NOTE (DAY SHIFT) RECEIVED PT AWAKE IN BED, A/O X3, WELSH-SPEAKING, ABLE TO MAKE NEEDS KNOWN. ON O2 4L VIA NC, PATIENT DENIES PAIN OR SOB. ON TELE MONITOR SB 57 TO SR 71 BPM RANGE WITH PVCs. IV ACCESS ON RIGHT HAND #20G SL, PATENT, INTACT, FLUSHING WELL. KINGS HD CATH INTACT. S/P HD YESTERDAY DRAINED 3 LITERS FLUID., NO S/S OF HYPOGLYCEMIA NOTED AT THIS TIME. SAFETY PRECAUTIONS IN PLACE: BED LOCKED AND IN LOWEST POSITION, SIDE RAILS UP X 3, CALL LIGHT AND TRAY TABLE WITHIN REACH. WILL CONTINUE TO MONITOR AND CARE FOR PATIENT PER HOSPITALIST'S POC..
[2022-07-16] MEDS: INSULIN REGULAR, HUMAN 100 UNIT/ML 3 ML VIAL SQ PRN ×3 (08:56→17:17)
[2022-07-16] MEDS: BLOOD SUGAR DIAGNOSTIC 1 EACH STRIP IN SCH ×4 (08:56→22:25)
[2022-07-16] MEDS: CALCIUM ACETATE 667 MG CAP/TAB PO SCH ×3 (09:22→17:31)
[2022-07-16] MEDS: FAMOTIDINE (20 MG) 20 MG TABLET PO SCH (09:22)
[2022-07-16] MEDS: DOCUSATE SODIUM 100 MG CAPSULE PO SCH ×2 (09:23→22:24)
[2022-07-16] MEDS: CARBAMIDE PEROXIDE OTIC 15 ML BOTTLE EACH EAR SCH ×2 (09:23→17:39)
[2022-07-16] MEDS: CARVEDILOL 6.25 MG TABLET PO SCH ×2 (09:23→17:00)
[2022-07-16] MEDS: NEPRO VAN 237 ML CAN PO SCH ×2 (09:24→17:23)
[2022-07-16] MEDS: PAROXETINE HCL 20 MG TABLET PO SCH (09:24)
[2022-07-16] MEDS: FERROUS SULFATE (325 MG) 325 MG/TAB TABLET PO SCH ×2 (09:24→17:30)
[2022-07-16] MEDS: GABAPENTIN 100 MG CAPSULE PO SCH ×3 (09:24→17:30)
[2022-07-16] MEDS: LISINOPRIL (10MG) 10 MG TABLET PO SCH (09:25)
[2022-07-16] MEDS: VIT B CMPLX 3/FA/VIT C/BIOTIN 1 TAB TABLET PO SCH (09:25)
[2022-07-16] MEDS: ASCORBIC ACID 500 MG TABLET PO SCH (09:25)
[2022-07-16] MEDS: NIFEDIPINE XL 60 MG TAB.ER.24 PO SCH ×2 (11:20→22:24)
--- NOTE | 2022-07-16 11:55 | NUR ---
SCRAP DROP CRANE OPERATOR NOTES- CLONIDINE 0.1 MG GIVEN PRN PATIENT'S BP LEVEL IS 151/80. CLONIDINE 0.1MG GIVEN RPN FOR SBP >150. WILL RECHECK BP LEVEL AFTER 30 MINS. Addendum: 07/17/22 at 0058 by DOUG RIVER RN CORRECT TIME IS 8543
[2022-07-16 12:00] VITALS: BP 129/69
[2022-07-16 16:17] VITALS: BP 111/60
--- NOTE | 2022-07-16 19:05 | NUR ---
LAUNDRY OPERATOR CLOSING NOTES PT UP OOB WITH STAFF ASSIST TO BATHROOM AND BACK TO BED AT CHANGE OF SHIFT TONIGHT. REFUSED TO USE URINAL. A/O X 3, SWAZI-SPEAKING, ABLE TO MAKE NEEDS KNOWN. STABLE ON O2 4L VIA NC. DENIES PAIN OR SOB AT THIS TIME. ON TELE MONITOR SB 57 TO SR 71 WITH PVC'S. IV ACCESS R HAND #20G SL, PATENT, INTACT, FLUSHING WELL. KINGS HD CATH INTACT. HAD EPISODE OF HYPOGLYCEMIA DUE TO NOT EATING LUNCH MUCH EXPECTED AND RECEIVING REGULAR INSULIN 6 UNITS FOR POC BG= 258 MG/DL PER RISS. C/O DIZZYNESS AND WAS DIAPHORETIC AT 14:16 HOURS WITH bg = 27MG/DL. PATIENT DRANK 8 OUNCES OF ORANGE JUICE AND BG RETURNED TO NORMAL 74 MG/DL BY 14:45 HOURS. HYPOGLYCEMIC EVENT REPORTED TO DR. COTTER. ALL CARE PROVIDED. SAFETY PRECAUTIONS MAINTAINED: BED LOCKED AND IN LOWEST POSITION, SIDE RAILS UP X 3, CALL LIGHT AND TRAY TABLE WITHIN REACH. WILL ENDORSE TO WARD SERVICE SUPERVISOR NURSE FOR MILLIE.
--- NOTE | 2022-07-16 19:35 | NUR ---
SWIM COACH OPENING NOTES RECEIVED PATIENT AWAKE IN BED. A/O X3-4. KYRGYZ-SPEAKING AND ABLE TO MAKE NEEDS KNOWN. ON 4L OXYGEN VIA NC, BREATHING EVEN AND UNLABORED, NO SIGNS OF DISTRESS OR SOB NOTED AT THIS TIME. ON TELE MONITOR WITH CURRENT READING OF SB ON 70'S. IV ACCESS R HAND #20G SL, PATENT, INTACT, FLUSHING WELL. KINGS HD CATH INTACT. NO S/S OF HYPOGLYCEMIA NOTED AT THIS TIME. SAFETY PRECAUTIONS IN PLACE WITH BED IN LOWEST LOCKED POSITION. SIDE RAILS UP X 3. CALL LIGHT AND TRAY TABLE WITHIN REACH. WILL CONTINUE WITH THE PLAN OF CARE.
[2022-07-16 21:02] VITALS: BP 118/69
[2022-07-16] MEDS: ONDANSETRON HCL/PF 4 MG/2 ML VIAL IVP PRN (21:12)
[2022-07-16] MEDS: DONEPEZIL 5 MG TABLET PO SCH (22:24)
[2022-07-16] MEDS: ATORVASTATIN 10 MG TABLET PO SCH (22:24)
[2022-07-16 23:44] VITALS: BP 151/77
[2022-07-17] VITALS (10 sets, daily range): BP systolic 120–142; BP diastolic 54–81
[2022-07-17] MEDS: ONDANSETRON HCL/PF 4 MG/2 ML VIAL IVP PRN ×2 (00:39→06:11)
--- NOTE | 2022-07-17 00:40 | NUR ---
RN NOTES- RECHECK BP PATIENT'S BP LEVEL 136/81 WITH HR OF 61. FORGOT TO SCAN THE CLONIDINE 0.1MG 30 MINS AGO. WILL CONTINUE TO MONITOR THE PATIENT.
[2022-07-17] MEDS: CLONIDINE HCL 0.1 MG TABLET PO PRN (00:52)
[2022-07-17 06:14] LABS: BASOPHILS % (AUTO) 0.8 % (0.0-2.0); EOSINOPHILS % (AUTO) 5.3 % (0.0-6.0); HEMATOCRIT 30 % (39-51); HEMOGLOBIN 9.7 g/dL (13.5-17.5); LYMPHOCYTES # (AUTO) 1.4 K/uL (0.8-4.8); MEAN CORPUSCULAR HGB CONC 33 g/dl (31.0-36.0); MEAN CORPUSCULAR VOLUME 97 fL (80-96); MONOCYTES # (AUTO) 0.7 K/uL (0.1-1.30); MONOCYTES % (AUTO) 12.1 % (2.0-12.0); NEUTROPHILS # (AUTO) 3.4 K/uL (1.8-8.9); NEUTROPHILS % (AUTO) 57.8 % (43.0-81.0); PLATELET COUNT (AUTO) 200 K/uL (150-450); RED BLOOD CELL COUNT(AUTO) 3.05 MIL/uL (4.5-6.0); WHITE BLOOD COUNT (AUTO) 5.9 K/uL (4.3-11.0)
[2022-07-17] MEDS: BLOOD SUGAR DIAGNOSTIC 1 EACH STRIP IN SCH ×4 (06:32→21:43)
[2022-07-17] MEDS: INSULIN REGULAR, HUMAN 100 UNIT/ML 3 ML VIAL SQ PRN ×2 (06:33→21:56)
--- NOTE | 2022-07-17 06:37 | NUR ---
WATER CARTER CLOSING NOTES PATIENT AWAKE IN BED. A/O X 3-4. ON 4L OXYGEN VIA NC, BREATHING EVEN AND UNLABORED, NO SIGNS OF DISTRESS OR SOB NOTED AT THIS TIME. ON TELE MONITOR WITH CURRENT READING OF SB ON 70'S. NO INSULIN COVERAGE GIVEN DURING THE SHIFT. IV ACCESS R HAND #20G SL, PATENT, INTACT, FLUSHING WELL. KINGS HD CATH INTACT. NO S/S OF HYPOGLYCEMIA NOTED AT THIS TIME. ALL NEEDS ATTENDED AND CARRIED OUT ACTIVE MD ORDERS. SAFETY PRECAUTIONS MAINTAINED. WILL ENDORSE TO THE NEXT SHIFT.
[2022-07-17 06:43] LABS: CALCIUM, SERUM 9.3 mg/dL (8.5-10.1); CREATININE 5.3 mg/dL (0.6-1.3); MAGNESIUM 2.7 mg/dL (1.8-2.4); PHOSPHORUS 2.7 mg/dL (2.5-4.9); POTASSIUM 5.5 mmol/L (3.5-5.1)
--- NOTE | 2022-07-17 07:25 | NUR ---
EQUIPMENT LEAD OPENING NOTES RECEIVED PATIENT IN BED, ASLEEP, EASY TO AROUSE, A/O X3-4. KYRGYZ-SPEAKING. ABLE TO MAKE NEEDS KNOWN. DENIES ANY PAIN AT THIS TIME. ON O2 INHALATION AT 4LPM VIA NC, BREATHING EVEN AND UNLABORED, NO SIGNS OF DISTRESS OR SOB NOTED AT THIS TIME. ON TELE MONITOR READING SB; HR-51BPM. WITH IV ACCESS ON R HAND #[email or web address] SL, PATENT AND INTACT. WITH [facility] HD CATH INTACT. NO S/S OF HYPOGLYCEMIA NOTED AT THIS TIME. SAFETY PRECAUTIONS IN PLACE WITH BED IN LOWEST LOCKED POSITION. SIDE RAILS UP X 3. CALL LIGHT WITHIN EASY REACH. WILL CONTINUE TO MONITOR THE PATIENT.
[2022-07-17] MEDS: DOCUSATE SODIUM 100 MG CAPSULE PO SCH ×2 (08:17→21:42)
[2022-07-17] MEDS: ASCORBIC ACID 500 MG TABLET PO SCH (08:17)
[2022-07-17] MEDS: GABAPENTIN 100 MG CAPSULE PO SCH ×3 (08:17→17:43)
[2022-07-17] MEDS: FAMOTIDINE (20 MG) 20 MG TABLET PO SCH (08:17)
[2022-07-17] MEDS: VIT B CMPLX 3/FA/VIT C/BIOTIN 1 TAB TABLET PO SCH (08:17)
[2022-07-17] MEDS: FERROUS SULFATE (325 MG) 325 MG/TAB TABLET PO SCH ×2 (08:17→17:43)
[2022-07-17] MEDS: PAROXETINE HCL 20 MG TABLET PO SCH (08:17)
[2022-07-17] MEDS: CALCIUM ACETATE 667 MG CAP/TAB PO SCH ×3 (08:17→17:43)
[2022-07-17] MEDS: CARVEDILOL 6.25 MG TABLET PO SCH ×2 (08:18→17:45)
[2022-07-17] MEDS: NIFEDIPINE XL 60 MG TAB.ER.24 PO SCH ×2 (08:26→21:42)
[2022-07-17] MEDS: LISINOPRIL (10MG) 10 MG TABLET PO SCH (08:27)
[2022-07-17] MEDS: NEPRO VAN 237 ML CAN PO SCH ×2 (08:40→17:46)
[2022-07-17] MEDS: CARBAMIDE PEROXIDE OTIC 15 ML BOTTLE EACH EAR SCH ×2 (08:49→17:53)
--- NOTE | 2022-07-17 13:30 | NUR ---
MATERIAL HANDLING TECHNICIAN PATIENT UNDERWENT LEFT THORACENTESIS WITH DRAINAGE OUTPUT OF 1550ML. PATIENT TOLERATED THE PROCEDURE. WILL CONTINUE TO MONITOR THE PATIENT.
--- NOTE | 2022-07-17 14:15 | NUR ---
DITCHING MACHINE OPERATOR PATIENT STARTED HEMODIALYSIS. WILL CONTINUE TO MONITOR.
--- NOTE | 2022-07-17 17:15 | NUR ---
CHLORINATION OPERATOR PATIENT'S HEMODIALYSIS ENDED AT 1715H WITH OUTPUT OF 3LITERS. PATIENT TOLERATED WELL. WILL CONTINUE TO MONITOR THE PATIENT.
--- NOTE | 2022-07-17 19:05 | NUR ---
SALES SUPPORT SPECIALIST OPENING NOTES PATIENT IS SLEEPING IN BED, EASILY BEING AROUSED. HE IS ALERT AND ORIENTED, A/O X3. PATIENT IS UZBE[place] SPEAKING; ABLE TO VERBALIZED HIS NEEDS. PT DENIES OF HAVING ANY PAIN AT THIS TIME. HE IS ON 4 LPM VIA NC, BREATHING EVENLY, UNLABORED. NO S/S OF DISTRESS OR SOB. JE IS ON TELE MONITOR, CURRENT READING IS SB WITH HR AT 50S. IV ACCESS IS AT HIS R HAND, #20G SL, FLUSHED WELL WITH 10 CC OF NS. IV SITE IS PATENT AND INTACT. PT HAS HD ACCESS AT HIS L UA; THE DRESSING IS DRY, CLEAN, AND INTACT. SAFETY PRECAUTIONS IN PLACE: BED IN LOWEST AND LOCKED POSITION; SIDE RAILS UP X 3; BED ALARM IS SET, CALL LIGHT AND TABLE ARE WITHIN EASY REACH. WILL CONTINUE MONITORING THE PT AND PROVIDE THE CARE PT NEEDS.
--- NOTE | 2022-07-17 19:27 | NUR ---
SUPERVISOR SHOW OPERATIONS CLOSING NOTES PATIENT IN BED, ASLEEP, EASY TO AROUSE, A/O X3-4. SAMOAN-SPEAKING. DENIES ANY PAIN AT THIS TIME. ON O2 INHALATION AT 4LPM VIA NC, BREATHING EVEN AND UNLABORED, NO SIGNS OF DISTRESS OR SOB NOTED AT THIS TIME. ON TELE MONITOR READING SB; HR-58BPM. WITH IV ACCESS ON R HAND #20G SL, PATENT AND INTACT. WITH [facility] HD CATH INTACT. NO S/S OF HYPOGLYCEMIA NOTED AT THIS TIME. ALL DUE MEDS GIVEN. ALL NURSING NEEDS ATTENDED. SAFETY PRECAUTIONS MAINTAINED. WITH BED IN LOWEST LOCKED POSITION. SIDE RAILS UP X 3. CALL LIGHT WITHIN EASY REACH. WILL ENDORSE TO ORDER CONTROL CLERK BLOOD BANK NURSE FOR CONTINUITY OF CARE.
[2022-07-17] MEDS: ATORVASTATIN 10 MG TABLET PO SCH (21:42)
[2022-07-17] MEDS: DONEPEZIL 5 MG TABLET PO SCH (21:42)
[2022-07-18] VITALS: BP 127/66
[2022-07-18 04:00] VITALS: BP 130/69
[2022-07-18 05:55] LABS: BASOPHILS # (AUTO) 0.1 K/uL (0.0-0.2); BASOPHILS % (AUTO) 0.7 % (0.0-2.0); EOSINOPHILS % (AUTO) 3.7 % (0.0-6.0); HEMATOCRIT 32 % (39-51); HEMOGLOBIN 10.6 g/dL (13.5-17.5); LYMPHOCYTES # (AUTO) 1.3 K/uL (0.8-4.8); LYMPHOCYTES % (AUTO) 17.2 % (20.0-44.0); MEAN CORPUSCULAR HGB CONC 33 g/dl (31.0-36.0); MEAN CORPUSCULAR VOLUME 97 fL (80-96); MONOCYTES # (AUTO) 0.8 K/uL (0.1-1.30); MONOCYTES % (AUTO) 11.5 % (2.0-12.0); NEUTROPHILS # (AUTO) 4.9 K/uL (1.8-8.9); NEUTROPHILS % (AUTO) 66.9 % (43.0-81.0); PLATELET COUNT (AUTO) 219 K/uL (150-450); RED BLOOD CELL COUNT(AUTO) 3.33 MIL/uL (4.5-6.0); WHITE BLOOD COUNT (AUTO) 7.3 K/uL (4.3-11.0)
[2022-07-18 06:09] LABS: CREATININE 3.7 mg/dL (0.6-1.3); MAGNESIUM 2.3 mg/dL (1.8-2.4); PHOSPHORUS 2.7 mg/dL (2.5-4.9)
[2022-07-18] MEDS: BLOOD SUGAR DIAGNOSTIC 1 EACH STRIP IN SCH ×3 (06:30→16:38)
--- NOTE | 2022-07-18 07:24 | NUR ---
WEIGHT CONTROL ENGINEER OPENING NOTES PATIENT IS SLEEPING IN BED, EASILY BEING AROUSED. HE IS ALERT AND ORIENTED, A/O X3. PATIENT IS KYRGY[place] SPEAKING; ABLE TO VERBALIZED HIS NEEDS. PT DENIES OF HAVING ANY PAIN AT THIS TIME. HE IS ON 4 LPM VIA NC, BREATHING EVENLY, UNLABORED. NO S/S OF DISTRESS OR SOB. JE IS ON TELE MONITOR, CURRENT READING IS SB WITH HR AT 50S. IV ACCESS IS AT HIS R HAND, #20G SL, FLUSHED WELL WITH 10 CC OF NS. IV SITE IS PATENT AND INTACT. PT HAS HD ACCESS AT HIS L UA; THE DRESSING IS DRY, CLEAN, AND INTACT. SAFETY PRECAUTIONS IN PLACE: BED IN LOWEST AND LOCKED POSITION; SIDE RAILS UP X 3; BED ALARM IS SET, CALL LIGHT AND TABLE ARE WITHIN EASY REACH. ENDORSED NEXT SHIFT NURSE FOR CONTINUING PT CARE.
--- NOTE | 2022-07-18 07:25 | NUR ---
SENIOR CLINICAL RESEARCH ASSOCIATE OPENING NOTES PATIENT AWAKE, A/O X3. PATIENT IS LUX[place] SPEAKING, SENIOR CUSTOMER SERVICE REPRESENTATIVE COMMUNICATIONS PROFESSIONAL; ABLE TO VERBALIZED NEEDS. PT DENIES PAIN AT THIS TIME. HE IS ON 4 LPM VIA NC, BREATHING EVENLY AND UNLABORED. NO S/S OF DISTRESS OR SOB. PATIENT ON TELE MONITOR, CURRENT READING IS SB WITH HR AT 50s. IV ACCESS IS AT HIS R HAND, #20G SL, C/D/I WITH 10 CC OF NS. PT HAS HD ACCESS AT HIS L UA; C/D/IT SAFETY PRECAUTIONS IN PLACE: BED IN LOWEST AND LOCKED POSITION; SIDE RAILS UP X 3; BED ALARM IS SET, CALL LIGHT AND TABLE ARE WITHIN EASY REACH. WILL CONTINUE TO MONITOR FOR MILLIE
[2022-07-18 08:00] VITALS: BP 159/68
[2022-07-18] MEDS: FAMOTIDINE (20 MG) 20 MG TABLET PO SCH (08:25)
[2022-07-18] MEDS: VIT B CMPLX 3/FA/VIT C/BIOTIN 1 TAB TABLET PO SCH (08:26)
[2022-07-18] MEDS: CALCIUM ACETATE 667 MG CAP/TAB PO SCH ×3 (08:26→18:00)
[2022-07-18] MEDS: FERROUS SULFATE (325 MG) 325 MG/TAB TABLET PO SCH ×2 (08:27→16:19)
[2022-07-18] MEDS: GABAPENTIN 100 MG CAPSULE PO SCH ×3 (08:27→16:26)
[2022-07-18] MEDS: PAROXETINE HCL 20 MG TABLET PO SCH (08:27)
[2022-07-18] MEDS: DOCUSATE SODIUM 100 MG CAPSULE PO SCH (08:27)
[2022-07-18] MEDS: ASCORBIC ACID 500 MG TABLET PO SCH (08:27)
[2022-07-18] MEDS: NIFEDIPINE XL 60 MG TAB.ER.24 PO SCH (08:31)
[2022-07-18] MEDS: LISINOPRIL (10MG) 10 MG TABLET PO SCH (08:31)
[2022-07-18] MEDS: CARVEDILOL 6.25 MG TABLET PO SCH ×2 (08:32→16:26)
[2022-07-18] MEDS: NEPRO VAN 237 ML CAN PO SCH ×2 (08:33→16:27)
[2022-07-18] MEDS: CARBAMIDE PEROXIDE OTIC 15 ML BOTTLE EACH EAR SCH ×2 (08:36→16:19)
[2022-07-18] MEDS ORDERED: GABA100C PO (09:39)
[2022-07-18] MEDS ORDERED: CLON0.1T PO (09:39)
--- NOTE | 2022-07-18 11:25 | NUR ---
Patient in-process on hemodialysis. With dc order upon clearance from Nephrology
[2022-07-18 12:00] VITALS: BP 146/78
[2022-07-18] MEDS: INSULIN REGULAR, HUMAN 100 UNIT/ML 3 ML VIAL SQ PRN ×2 (12:27→16:38)
[2022-07-18 16:00] VITALS: BP 144/74
[2022-07-18 16:26] VITALS: BP 144/74
--- NOTE | 2022-07-18 17:35 | NUR ---
Patient discharged and endorsed to [facility] c/o Sarah RN on stable condition, A/O x3, Martiniquais speaker, PATRICE as interpreter for the deaf. Patient is able to make needs known. Patient is breathing evenly and unlabored on room air, no signs of pain nor any distress noted at the time. Patient was given discharge instructions both verbally and in writing. All belongings accounted for. Patients IV access removed, C/D/I. Patient takes dinner, awaiting ambulance arrival. Patient will be assigned to room 230B per [facility]
--- NOTE | 2022-07-18 18:05 | NUR ---
Patient safely transferred to [facility] and picked up by 2 [employer] food [employer] cooking for transfer to SNF, left the [facility] at approximately [id number]
== END 2022-07-18 18:10 | DRG 194 ==
LOC: ER 14:27 → TELE 18:59
PROVIDERS: ADMIT Nurse Practitioner Acute Care; ATTEND Internal Medicine
PROC: 5A1D70Z Performance of Urinary Filtration, Intermittent, Less than 6 Hours Per Day (ICD-10-PCS; principal; 2022-07-08)
PROC: 0W993ZZ Drainage of Right Pleural Cavity, Percutaneous Approach (ICD-10-PCS; 2022-07-14)
PROC: 0W9B3ZZ Drainage of Left Pleural Cavity, Percutaneous Approach (ICD-10-PCS; 2022-07-17)
DX: I13.2 Hypertensive heart and chronic kidney disease with heart failure and with stage 5 chronic kidney disease, or end stage renal disease (principal); J96.01 Acute respiratory failure with hypoxia; E87.1 Hypo-osmolality and hyponatremia; D63.1 Anemia in chronic kidney disease; I27.20 Pulmonary hypertension, unspecified; J90 Pleural effusion, not elsewhere classified; N18.6 End stage renal disease; I50.23 Acute on chronic systolic (congestive) heart failure; E11.22 Type 2 diabetes mellitus with diabetic chronic kidney disease; E87.5 Hyperkalemia; I42.9 Cardiomyopathy, unspecified; Z99.2 Dependence on renal dialysis; Z99.81 Dependence on supplemental oxygen
CPT/HCPCS: 36415; 36600; 71045-TC; 71250-TC; 80048-TC; 80061-TC; 80076-TC; 80170-TC; 80202-TC; 82803-TC; 82962-TC; 83605-TC; 83735-TC; 83880; 84100-TC; 84484-TC; 85025-TC; 85610-TC; 86706; 87040-TC; 87081-TC; 87102-TC; 87340; 89051-TC; 90935-TC; 93307-TC; A4223; C9803; G0378; J0692; J1580; J1644; J1815; J2405; J3370; J7030; J7050; J7060